=== PATIENT | male | born 1965 | race Caucasian/White ===

== ENCOUNTER 2018-02-18 13:27 | Emergency (ER) | payer OTHER ==
[~2018-02-18] VITALS: Ht 170.2 cm; Wt 102.1 kg
[~2018-02-18 13:27] MED LIST: ANASTROZOLE1 MG PO; ANDROGEL2.5 G1 TD; AZITHROMYCIN 2250 MG PO; LEVOTHYROXIN0.088 MG PO; XARELTO15 MG PO; XARELTO20 MG PO
[2018-02-18 14:12] LABS: CALCIUM 8.9 mg/dL (8.5-10.1); CREATININE 0.9 mg/dL (0.6-1.3); POTASSIUM 3.5 mmol/L (3.5-5.1)
[2018-02-18 15:12] VITALS: BP 139/88
== END 2018-02-18 15:13 | disposition home or self-care (01) ==
LOC: M.ERS 13:27
PROVIDERS: Emergency Medicine Emergency Medical Services
DX: Z71.1 Person with feared health complaint in whom no diagnosis is made (principal); E03.9 Hypothyroidism, unspecified; Z88.2 Allergy status to sulfonamides; Z88.1 Allergy status to other antibiotic agents

== ENCOUNTER 2018-12-24 14:13 | Emergency (ER) | payer OTHER ==
[~2018-12-24] VITALS: Ht 170.2 cm; Wt 104.3 kg
[2018-12-24 15:17] LABS: ABSOLUTE BASOPHILS 0.1 thou/uL (0.0-0.2); ABSOLUTE EOSINOPHILS 0.1 thou/uL (0.0-0.7); ABSOLUTE LYMPHOCYTES 2.1 thou/uL (0.8-5.3); ABSOLUTE MONOCYTES 1.2 thou/uL (0.0-1.2); ABSOLUTE NEUTROPHILS 7.6 thou/uL (1.6-8.1); BASOPHILS 0.9 %; EOSINOPHILS 0.9 %; HEMATOCRIT 42.5 % (42.0-52.0); HEMOGLOBIN 14.6 gm/dL (14.0-18.0); LYMPHOCYTES 19.1 %; MCH 29.1 pg (26.0-34.0); MCHC 34.3 g/dL (28.0-37.0); MCV 84.9 fL (80.0-100.0); MONOCYTES 11.1 %; MPV 7.1 fl. (7.2-11.1); NUCLEATED RBCS 0 /100WBC; PLATELET COUNT* 258 thou/uL (150-400); RBC 5.01 mil/uL (4.50-6.00); RDW-CV 14.2 % (10.5-14.5); WBC 11.2 thou/uL (4.0-11.0)
[2018-12-24 15:19] LABS: URINE BILIRUBIN NEGATIVE (Negative); URINE BLOOD 1+ (Negative); URINE CLARITY CLEAR; URINE COLOR YELLOW; URINE GLUCOSE-RANDOM 1+ (Negative); URINE KETONES NEGATIVE (Negative); URINE LEUKOCYTES-REFLEX NEGATIVE (Negative); URINE NITRITE-REFLEX NEGATIVE (Negative); URINE PROTEIN NEGATIVE (Negative); URINE UROBILINOGEN 0.2 E.U./dl (0.2-1.0)
[2018-12-24 15:30] LABS: BACTERIA-REFLEX None Seen /HPF (None Seen); CASTS None Seen /LPF (None Seen); CRYSTALS None Seen /LPF (None Seen); MUCUS None Seen strn/LPF (None Seen); SQUAMOUS 0-3 Few /LPF (0-3); URINE RBC 0-2 Rare /HPF (0-2); URINE WBC-REFLEX None Seen /HPF (0-5)
[2018-12-24 15:31] LABS: CREATININE 1.5 mg/dL (0.6-1.3)
[2018-12-24 15:36] LABS: ALBUMIN 3.7 g/dL (3.4-5.0); TOTAL BILIRUBIN 0.6 mg/dL (<0.1-1.0)
[2018-12-24] MEDS ORDERED: ZOFRAN ODT4 MG PO (16:06)
[2018-12-24] MEDS ORDERED: NORCO 5-325 TA1 EAC1 PO (16:06)
[2018-12-24] MEDS ORDERED: FLOMAX0.4 MG PO (16:06)
[2018-12-24 16:20] VITALS: BP 160/92
== END 2018-12-24 16:21 | disposition home or self-care (01) ==
LOC: M.ERS 14:13
PROVIDERS: Nurse Practitioner Family
DX: N20.1 Calculus of ureter (principal); R91.1 Solitary pulmonary nodule; E03.9 Hypothyroidism, unspecified; Z88.4 Allergy status to anesthetic agent; Z88.2 Allergy status to sulfonamides; Z88.8 Allergy status to other drugs, medicaments and biological substances; Z87.442 Personal history of urinary calculi

== ENCOUNTER 2020-12-17 13:09 | Emergency (ER) | payer OTHER ==
[~2020-12-17] VITALS: Ht 170.2 cm; Wt 104.3 kg
[~2020-12-17 13:09] MED LIST changes: +FLOMAX0.4 MG PO; +NORCO 5-325 TA1 EAC1 PO; +ZOFRAN ODT4 MG PO
[2020-12-17] MEDS ORDERED: AMOXICILLIN 50500 MG PO (13:19)
[2020-12-17] MEDS ORDERED: HYDROCODON-ACE1 EAC7 PO (13:45)
[2020-12-17] MEDS ORDERED: AUGMENTIN 875-1 EACH PO (13:45)
[2020-12-17 13:52] VITALS: BP 152/92
== END 2020-12-17 13:53 | disposition home or self-care (01) ==
LOC: M.ERS 13:09
DX: K08.89 Other specified disorders of teeth and supporting structures (principal); Z88.1 Allergy status to other antibiotic agents; Z88.8 Allergy status to other drugs, medicaments and biological substances; Z79.899 Other long term (current) drug therapy; Z98.890 Other specified postprocedural states; Z87.442 Personal history of urinary calculi